=== PATIENT | female | born 1945 | race Caucasian/White ===

== ENCOUNTER 2016-06-03 09:27 | Emergency (ER) | payer MEDICARE, OTHER ==
[~2016-06-03] VITALS: Ht 160 cm; Wt 51.7 kg
[~2016-06-03 09:27] MED LIST: BONIVA; DIAZ5TAB3; FLUC200T31; IBAN2.5T PO; IBUP-15; SENN1TAB27
[2016-06-03] MEDS ORDERED: KETOROLAC 30 MG/ML VIAL IM ONE (10:15)
--- NOTE | 2016-06-03 10:20 | Diagnostic Imaging Report ---
EXAM: RIBS, RIGHT 2-3 VIEWS INDICATION: Fall onto right ribs. Chest pain. COMPARISON: None. FINDINGS: No fractures. The right lung is clear. Calcified aorta. No right pleural effusion or pneumothorax. IMPRESSION: No right rib fractures identified. Dictated by: Dictated on workstation # [id number]
--- NOTE | 2016-06-03 10:54 | ED General ---
General Chief Complaint: Chest Wall/Rib Pain Stated Complaint: RIGHT SIDE RIB PAIN Nursing Triage Note: AMBULATED TO ROOM 03 WITH COMPLAINTS OF RIB PAIN UNDER RIGHT BREAST. STATES X1 WEEK AGO PT BENT OVER AGAINST SOMETHING METAL AND THINKS SHE CRACKED A RIB. Nursing Sepsis Screen: No Definite Risk Source of Information: Patient Exam Limitations: No Limitations History of Present Illness Time Seen by Provider: 09:53 Initial Comments This delightful 70-year-old woman presents to the emergency room with complaints of right lateral chest wall pain that started about one week ago when she leaned over the arm of a metal chair. Pain started within 30 minutes. It does hurt to take in a deep breath, cough, or sneeze. This area also has point tenderness. She took 400 mg of Advil twice which was not particularly helpful. She rates her pain as an 8/10. Allergies and Home Medications Allergies Coded Allergies: Penicillins (Unverified Allergy, Mild, 07/20/08) hydrocodone (Unverified Allergy, Unknown, 10/13/08) Home Medications No Active Prescriptions or Reported Meds Constitutional: no symptoms reported EENTM: no symptoms reported Respiratory: see HPI Cardiovascular: no symptoms reported Gastrointestinal: no symptoms reported Genitourinary: no symptoms reported Musculoskeletal: see HPI Skin: no symptoms reported Psychiatric/Neurological: No Symptoms Reported Past Zugsfiw-Qagnac-Okznjv Hx Patient Social History Recent Foreign Travel: No Contact w/Someone Who Travel: No Recent Infectious Disease Expo: No Recent Hopitalizations: No Immunizations Up To Date Date of Pneumonia Vaccine: Nov 15, 2015 Date of Influenza Vaccine: Nov 20, 2011 Seasonal Allergies Seasonal Allergies: No Surgeries HX Surgeries: Yes Surgeries: Orthopedic (bilateral knees, thumb, cervical spine), Tubal Ligation Respiratory Hx Respiratory Disorders: No Cardiovascular Hx Cardiac Disorders: No Neurological Hx Neurological Disorders: Yes (history of cervical spinal stenosis status post surgery) Reproductive System Hx Reproductive Disorders: No Sexually Transmitted Disease: No Female Reproductive Disorders: Denies Genitourinary Hx Genitourinary Disorders: No Gastrointestinal Hx Gastrointestinal Disorders: No Musculoskeletal Hx Musculoskeletal Disorders: Yes (history of cervical spinal stenosis status post surgical intervention) Endocrine Hx Endocrine Disorders: No HEENT HX ENT Disorders: No Hearing Impairment: Denies Cancer Hx Cancer: No Psychosocial Hx Psychiatric Problems: No Integumentary HX Skin/Integumentary Disorder: No Blood Transfusions Hx Blood Disorders: No Physical Exam Vital Signs Vital Sign - Last 12Hours 06/03/16 09:40 Temp 98.0 Pulse 66 Resp 18 B/P (MAP) 115/44 Pulse Ox 97 O2 Delivery Room Air Capillary Refill : Less Than 3 Seconds General Appearance: No Apparent Distress, WD/WN HEENT: PERRL/EOMI, Normal ENT Inspection Respiratory: Lungs Clear, Normal Breath Sounds, No Accessory Muscle Use, No Respiratory Distress Cardiovascular: Regular Rate, Rhythm, No Edema, No Murmur, Other (right inferior anterior lateral chest wall with point tenderness) Gastrointestinal: Normal Bowel Sounds, Non Tender, Soft Extremity: Normal Inspection, No Pedal Edema Neurologic/Psychiatric: Alert, Oriented x3, No Motor/Sensory Deficits, Normal 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 X-ray was negative. Patient was given reassurance and discharge instructions reviewed. Diagnostic Imaging Diagonstic Imaging: Xray Plain Films/CT/US/NM/MRI: chest Comments Chest x-ray viewed by me and report reviewed. See report below: NAME: WAN K[facility] REC#: [id number] PT STATUS: DEP ER : 1945 PHYSICIAN: EDILMA ZARATE MD ADMIT DATE: 06/03/16/ER Signed Date of Exam: 06/03/16 RIBS, RIGHT 2-3 VIEWS EXAM: RIBS, RIGHT 2-3 VIEWS INDICATION: Fall onto right ribs. Chest pain. COMPARISON: None. FINDINGS: No fractures. The right lung is clear. Calcified aorta. No right pleural effusion or pneumothorax. IMPRESSION: No right rib fractures identified. Dictated by: Dictated on workstation # [id number] <Dictated by GARY DOTSON MD> Departure Impression Impression: Primary Impression: Chest wall pain Disposition: 01 HOME, SELF-CARE Condition: Improved Departure-Patient Inst. Decision time for Depature: 10:40 Referrals: MARIANELA PIZANO DO (PCP/Family) Primary Care Physician Patient Instructions: Chest Pain That Is Not Caused by the Heart (DC) Add. Discharge Instructions: You may take ibuprofen up to 400 mg every 6 hours as needed for pain. It may take several doses before you notice a significant difference. Take ibuprofen with food or milk to avoid irritation of the stomach. You may add Tylenol ( acetaminophen) up to 650 mg every 4 hours as needed for additional pain relief. Follow-up with your doctor if not improving after one week. Return to the ER if symptoms worsen. All discharge instructions reviewed with patient and/or family. Voiced understanding. Scripts No Active Prescriptions or Reported Meds EDILMA ZARATE MD Jun 03, 2016 10:54
[2016-06-03 11:14] VITALS: BP 103/55
== END 2016-06-03 11:14 | disposition home or self-care (01) ==
LOC: EDUNIT# 09:27 → ER 09:28
DX: R07.89 Other chest pain (principal)
CPT/HCPCS: 71100; 96372; 99283

== ENCOUNTER → 2016-10-05 | Outpatient (CLI) | payer MEDICARE, OTHER ==
--- NOTE | 2016-10-05 20:34 | Diagnostic Imaging Report ---
Digital mammogram bilateral screening with tomosynthesis. This study was compared to the prior exams of 09/28/2015 and 07/30/2013. At this time, there are no current complaints. The current study was also evaluated with a Computer Aided Detection (CAD) system. FINDINGS: The fibroglandular tissue in both breasts is heterogeneously dense. This does limit the sensitivity of this exam. As noted on the prior exam, there are small roughly 1 cm nodular densities in the lateral aspects of each breast. These findings seem stable when compared to the prior study and have the appearance of lymph nodes. There is no primary or secondary sign of malignancy noted. The tomographic views also fail to show any sign of malignancy. IMPRESSION: There is no evidence for malignancy. ACR BI-RADS Category 1: Negative. Result letter will be mailed to the patient. Note: At least 10% of breast cancer is not imaged by mammography. Dictated by: Dictated on workstation # [id number]
== END ==
LOC: RAD 08:44
PROVIDERS: ATTEND Obstetrics & Gynecology
DX: Z12.31 Encounter for screening mammogram for malignant neoplasm of breast (principal)
CPT/HCPCS: 77067

== ENCOUNTER → 2017-04-10 | Outpatient (CLI) | payer MEDICARE, OTHER ==
--- NOTE | 2017-04-10 14:39 | Diagnostic Imaging Report ---
INDICATION: Left foot injury with pain around the second metatarsal. TIME OF EXAM: 02:42 p.m. FINDINGS: Three views of the left foot were obtained. Metatarsals appear intact. The phalanges are intact. The mid foot and hind foot are unremarkable. No fractures are seen. IMPRESSION: No acute bony abnormality is detected. Dictated by: Dictated on workstation # [id number]
== END ==
LOC: RAD 14:09
PROVIDERS: ATTEND Nurse Practitioner Family
DX: S99.922A Unspecified injury of left foot, initial encounter (principal)
CPT/HCPCS: 73630

== ENCOUNTER → 2017-06-22 | Outpatient (CLI) | payer MEDICARE, OTHER | LOC: RAD 10:01 | PROVIDERS: ATTEND Family Medicine | DX: Z12.31 Encounter for screening mammogram for malignant neoplasm of breast (principal) ==

== ENCOUNTER → 2018-04-22 | Outpatient (CLI) | payer MEDICARE, OTHER ==
--- NOTE | 2018-04-22 16:58 | Diagnostic Imaging Report ---
INDICATION: Tingling sensation on left-sided back starting at the left shoulder blade and running down.. TECHNIQUE: AP, lateral, and swimmers imaging of the thoracic spine was performed. CORRELATION STUDY: None. FINDINGS: The thoracic spinal alignment appears unremarkable. The vertebral body heights and disc spaces are fairly well maintained. No fracture or malalignment is seen. The cervicothoracic junction is somewhat limited in visualization. No suggestion for acute bony abnormality. IMPRESSION: No radiographic evidence for acute abnormality of the thoracic spine. Dictated by: Dictated on workstation # [id number]
--- NOTE | 2018-04-22 21:06 | Diagnostic Imaging Report ---
INDICATION: Tingling sensation in left side of back starting at left shoulder blade and running down. Sometimes right-sided. TECHNIQUE: AP, lateral and odontoid views cervical spine. CORRELATION STUDY: None FINDINGS: Trace retrolisthesis C3 on C4. Trace anterolisthesis C6 on C7, C7 on T1. Cervical vertebral body heights demonstrate slight anterior wedging C4, C5 and superior C6 level. Marked disc space narrowing C4-C5, C5-C6 and C6-C7 levels. Reactive endplate sclerosis and osteophyte formation present. Posterior elements demonstrate asymmetric hypertrophy and facet arthropathy. Interfacet hardware at the C3-C4, C4-C5, C5-C6 level on the left is present. Mildly prominent C7 cervical ribs. Odontoid unremarkable. Prevertebral soft tissues are unremarkable. Mildly prominent C7 cervical ribs. IMPRESSION: 1. Advanced multilevel cervical spondylosis is present. Posterior hardware at the C3-C4, C4-C5, C5-C6 level on the left. Dictated by: Dictated on workstation # [id number]
== END ==
LOC: RAD 14:33
PROVIDERS: ATTEND Family Medicine
DX: M47.812 Spondylosis without myelopathy or radiculopathy, cervical region (principal); M54.6 Pain in thoracic spine; Z98.890 Other specified postprocedural states
CPT/HCPCS: 72040; 72072

== ENCOUNTER → 2018-09-09 | Outpatient (CLI) | payer MEDICARE, OTHER ==
--- NOTE | 2018-09-09 13:27 | Diagnostic Imaging Report ---
PROCEDURE: MR imaging of the cervical spine without contrast. TECHNIQUE: Multiplanar, multisequence MR imaging of the cervical spine was performed without contrast. INDICATION: Pain between the shoulder blades. COMPARISON: Cervical spine radiographs on 04/22/2018. FINDINGS: No acute fracture or dislocation is seen in the cervical spine. There is straightening of the cervical spine. Minimal anterolisthesis of C6 on C7 and C7 on T1 is noted. Surgical hardware is seen at the left facets at C3-C4, C4-C5, and C5-C6. The vertebral body heights are well maintained. The bone marrow signal is unremarkable. No focal osseous lesions. The craniocervical junction is maintained. The cervical spinal cord demonstrates normal intrinsic signal. No epidural collections are seen. Included brainstem and posterior fossa have normal appearance. Multilevel degenerative changes are seen in the cervical spine with posterior disc bulges and uncovertebral arthropathy. C2-C3: No significant spinal canal or foraminal stenosis. C3-C4: Uncovertebral arthropathy results in no significant spinal canal or foraminal stenosis. C4-C5: Uncovertebral arthropathy results in no significant spinal canal narrowing and mild left foraminal narrowing. Small perineural cyst is noted in the left foramen. C5-C6: Posterior disc bulge and uncovertebral arthropathy result in mild spinal canal stenosis and mild right and [id number] left foraminal stenosis. C6-C7: Posterior disc bulge and uncovertebral arthropathy result in mild spinal canal stenosis and no foraminal stenosis. C7-T1: No significant spinal canal or foraminal stenosis. Soft tissues of neck are unremarkable. IMPRESSION: 1. No acute fracture or dislocation of the cervical spine. 2. Mild multilevel degenerative changes in the cervical spine, greatest at C5-C6. Dictated by: Dictated on workstation # [id number]
== END ==
LOC: RAD 12:24
PROVIDERS: ATTEND Physical Medicine & Rehabilitation
DX: M47.22 Other spondylosis with radiculopathy, cervical region (principal); Z98.890 Other specified postprocedural states
CPT/HCPCS: 72141

== ENCOUNTER → 2018-09-10 | Outpatient (CLI) | payer MEDICARE, OTHER ==
--- NOTE | 2018-09-10 14:38 | Diagnostic Imaging Report ---
INDICATION: Infrascapular shoulder pain. COMPARISON: Study correlated with plain films of 04/22/2018. TECHNIQUE: Multiplanar and multisequence non contrast-enhanced MRI thoracic spine performed. FINDINGS: Thoracic spinal cord has a normal volume, a normal morphology, and normal signal intensity. CSF circumscribes the cord at all vertebral body and disc space levels and the spinal canal is widely patent throughout the thoracic spine. Note is made of multiple left greater than right T2 hyper and T1 hypointense foraminal nodules, the largest of which is on the left at the T10-T11 level and results in expansion of the left neuroforamen. Bony erosions of the posterior body of T10 as well as some erosions of the posterior cortical elements. This lesion measured 2 cm AP x 1.6 cm transverse with cephalocaudal height of 1.9 cm. Several additional smaller similar signal lesions without foraminal expansion are present including left T12-L1, right greater than left T3-T4, left T4-T5, left T5-T6, left greater than right T7-T8, bilateral T8-T9 and T9-T10. While these likely reflect a perineural cyst, T2-bright nerve sheath tumors could not be excluded and limited imaging of the thoracic spine with axial and sagittal post contrast-enhanced T1 imaging recommended to exclude unexpected enhancement and to definitively exclude soft tissue lesions. IMPRESSION: 1. Multiple bilateral foraminal T2 hyperintense lesions, likely perineural cysts however post contrast-enhanced imaging recommended to exclude solid or enhancing lesions. 2. Normal vertebral body heights, aligned anatomically. Intact discs. No canal stenosis. Normal cord. Dictated by: Dictated on workstation # [id number]
== END ==
LOC: RAD 13:07
PROVIDERS: ATTEND Physical Medicine & Rehabilitation
DX: M48.8X4 Other specified spondylopathies, thoracic region (principal); M54.14 Radiculopathy, thoracic region
CPT/HCPCS: 72146

== ENCOUNTER 2018-09-13 12:57 | Outpatient (RCR) | payer MEDICARE, OTHER | END 2018-09-13 13:27 | disposition home or self-care (01) | PROVIDERS: ATTEND Physical Medicine & Rehabilitation | DX: M54.12 Radiculopathy, cervical region (principal); M53.84 Other specified dorsopathies, thoracic region; R29.3 Abnormal posture; Z98.890 Other specified postprocedural states ==

== ENCOUNTER → 2019-02-20 | Outpatient (CLI) | payer MEDICARE, OTHER ==
--- NOTE | 2019-02-20 17:18 | Diagnostic Imaging Report ---
INDICATION: Right hand pain. COMPARISON: None. EXAMINATION: Three views of the right hand were obtained. FINDINGS: No fracture or dislocation. Articular surfaces are age appropriate. No bony erosion identified. There is no radiopaque foreign body. There is no osteomyelitis or soft tissue gas. IMPRESSION: No underlying fracture or osteomyelitis identified. Dictated by: Dictated on workstation # [id number]
--- NOTE | 2019-02-20 17:21 | Diagnostic Imaging Report ---
INDICATION: Groin pain. COMPARISON: None. EXAMINATION: Single view of the pelvis and two views of the right hip were obtained. FINDINGS: Minimal to mild degenerative joint disease of both hips. There is no fracture, dislocation or osseous lesion. SI joints are symmetric. IMPRESSION: Degenerative joint disease without fracture. Dictated by: Dictated on workstation # [id number]
== END ==
LOC: RAD 16:15
PROVIDERS: ATTEND Family Medicine
DX: M16.11 Unilateral primary osteoarthritis, right hip (principal); M79.641 Pain in right hand
CPT/HCPCS: 73130

== ENCOUNTER 2019-03-25 15:58 | Outpatient (RCR) | payer MEDICARE, OTHER ==
[2019-04-09] MEDS ORDERED: DICL100G18 TP (13:00)
== END 2019-04-28 14:17 | disposition home or self-care (01) ==
PROVIDERS: ATTEND Family Medicine
DX: M16.11 Unilateral primary osteoarthritis, right hip (principal)

== ENCOUNTER → 2019-03-27 | Outpatient (CLI) | payer MEDICARE, OTHER ==
--- NOTE | 2019-03-27 14:18 | Diagnostic Imaging Report ---
INDICATION: Status post fall while painting in shower. Pain. TECHNIQUE: Three views of the right shoulder CORRELATION STUDY: None FINDINGS: The glenohumeral and acromioclavicular alignment are maintained and unremarkable. There is no evidence for acute fracture or dislocation. The visualized soft tissues are unremarkable. Apparent multilevel cervical changes of the cervical spine. IMPRESSION: 1. Negative for acute bony abnormality about the shoulder. Dictated by: Dictated on workstation # [id number]
--- NOTE | 2019-03-27 14:18 | Diagnostic Imaging Report ---
INDICATION: Post fall in shower while painting, pain. TECHNIQUE: 3 views of the right foot CORRELATION STUDY: None FINDINGS: There is some degree of bony demineralization. Mild degenerative changes joint space narrowing at 1st MTP joint. There is no acute fracture. Alignment anatomic. Soft tissues appearing unremarkable. IMPRESSION: 1. Negative for acute findings of the foot. Dictated by: Dictated on workstation # [id number]
--- NOTE | 2019-03-27 14:18 | Diagnostic Imaging Report ---
INDICATION: Post fall in shower while painting, pain. TECHNIQUE: 2 views right clavicle, 12:22 PM. CORRELATION STUDY: None FINDINGS: Clavicle is intact. There is mildly prominent spur along the distal inferior aspect of the clavicle. Clavicular joint maintained. Glenohumeral joint appears preserved. Apparent prior surgical changes of the cervical spine. IMPRESSION: 1. Negative for acute displaced right clavicle fracture. Degenerative spurring at the inferior distal clavicle. Dictated by: Dictated on workstation # [id number]
--- NOTE | 2019-03-27 14:18 | Diagnostic Imaging Report ---
INDICATION: Post fall while painting in shower. Pain TECHNIQUE: AP pelvis 12:25 PM CORRELATION STUDY: None FINDINGS: The pelvis demonstrates no evidence for acute fracture. The pectineal lines and obturator rings are maintained. Pubic symphysis and SI joints are unremarkable. Hips unremarkable. IMPRESSION: Negative examination of the pelvis. Dictated by: Dictated on workstation # [id number]
--- NOTE | 2019-03-27 16:03 | Diagnostic Imaging Report ---
PROCEDURE: US Renal Bilateral. TECHNIQUE: Multiple real-time grayscale images were obtained over the kidneys in various projections bilaterally. INDICATION: Fall and back pain. FINDINGS: Right kidney measures 9.8 x 4.8 x 4.1 cm and the left kidney measures 9.4 x 4.8 x 4.2 cm. Cortical thickness and echogenicity is normal. No calculus or hydronephrosis is identified. Partially filled urinary bladder is unremarkable although the ureteral jets were not visualized. IMPRESSION: Unremarkable renal ultrasound. Dictated by: Dictated on workstation # [id number]
== END ==
LOC: RAD 11:57
PROVIDERS: ATTEND Nurse Practitioner Family
DX: M19.011 Primary osteoarthritis, right shoulder (principal); M79.671 Pain in right foot; M54.9 Dorsalgia, unspecified; R10.2 Pelvic and perineal pain; W18.2XXA Fall in (into) shower or empty bathtub, initial encounter; Y93.89 Activity, other specified; Z98.890 Other specified postprocedural states
CPT/HCPCS: 72170; 73000; 73030; 73630; 76770

== ENCOUNTER → 2019-03-31 | Outpatient (CLI) | payer MEDICARE, OTHER ==
--- NOTE | 2019-03-31 10:14 | Diagnostic Imaging Report ---
INDICATION: Pain after fall. PA and lateral views of the chest were obtained. FINDINGS: The heart size, mediastinal configuration, and pulmonary vascularity are within normal limits. There is no pleural effusion, pneumothorax, or pneumonia. The osseous structures are unremarkable. IMPRESSION: No acute cardiopulmonary abnormality. Dictated by: Dictated on workstation # [id number]
--- NOTE | 2019-03-31 11:04 | Diagnostic Imaging Report ---
INDICATION: Neck pain. TECHNIQUE: Three views of the cervical spine were obtained. FINDINGS: There are post surgical changes of a posterior instrumentation at C4-C5, C5-C6, and C6-C7. There is multilevel degenerative disc disease. There is no fracture or traumatic subluxation. The prevertebral soft tissues are within normal limits. The odontoid is intact and the lateral masses are well aligned. IMPRESSION: Diffuse cervical spondylosis and multilevel degenerative disc disease as described with previous post surgical changes. Dictated by: Dictated on workstation # [id number]
== END ==
LOC: RAD 09:40
PROVIDERS: ATTEND Family Medicine
DX: M50.30 Other cervical disc degeneration, unspecified cervical region (principal); M47.812 Spondylosis without myelopathy or radiculopathy, cervical region; Z91.81 History of falling
CPT/HCPCS: 71046; 72040

== ENCOUNTER 2019-04-09 11:46 | Emergency (ER) | payer MEDICARE, OTHER ==
[~2019-04-09] VITALS: Ht 160 cm; Wt 53.6 kg
[2019-04-09] MEDS ORDERED: LIDOCAINE 1% INJ 20 ML 20 ML VIAL INJ ONE (12:30)
[2019-04-09] MEDS ORDERED: TRIAMCINOLONE ACET (KENALOG-40) 40 MG/ML 1 ML VIAL IA ONE (12:30)
--- NOTE | 2019-04-09 12:36 | ED Upper Extremity ---
General Chief Complaint: Upper Extremity Stated Complaint: R SHOULDER INJ Nursing Triage Note: Pt reports falling off a ladder two weeks ago and injuring R shoulder. Pt reports having xrays and US, both negative. Pt reports being sent here by Dr. Davalos today. Bruising in various stages of healing noted to pt's chest. Nursing Sepsis Screen: No Definite Risk Source: patient Exam Limitations: no limitations History of Present Illness Date Seen by Provider: Apr 09, 2019 Time Seen by Provider: 12:34 Initial Comments To ER with right shoulder pain has been ongoing since a fall about 2-3 weeks ago. She was in her shower on a ladder doing some maintenance at home when it fell causing her to land on her right shoulder. She's had several outpatient x- rays done, she is now unable to abduct or forward flex the arm at the shoulder because of pain in the anterior shoulder joint. Onset: just prior to arrival Severity: moderate Pain/Injury Location: right shoulder Method of Injury: fell Modifying Factors: Worse With Movement Allergies and Home Medications Allergies Coded Allergies: Penicillins (Unverified Allergy, Mild, 07/20/08) hydrocodone (Unverified Allergy, Unknown, 10/13/08) prednisone (Verified Allergy, Unknown, 04/09/19) flushed face tramadol (Verified Allergy, Unknown, 04/09/19) "forget things" triazolam (Verified Allergy, Unknown, Vomiting, 04/09/19) "makes me forget things" sulfamethoxazole (Verified Adverse Reaction, Unknown, 04/09/19) "stomach hurts" trimethoprim (Verified Adverse Reaction, Unknown, 04/09/19) "stomach hurts" Home Medications Diclofenac Sodium 100 Gm Gel..gram., 100 GM TP TID Prescribed by: GILA DEL ANGEL on 04/09/19 1300 Patient Home Medication List Home Medication List Reviewed: Yes Review of Systems Constitutional: see HPI EENTM: see HPI Respiratory: no symptoms reported Cardiovascular: no symptoms reported Genitourinary: no symptoms reported Musculoskeletal: see HPI Skin: no symptoms reported Psychiatric/Neurological: No Symptoms Reported Past Hfpyauh-Mdfqhk-Shnzvo Hx Patient Social History Alcohol Use: Denies Use Recreational Drug Use: No Smoking Status: Never a Smoker 2nd Hand Smoke Exposure: No Recent Foreign Travel: No Contact w/Someone Who Travel: No Recent Infectious Disease Expo: No Recent Hopitalizations: No Immunizations Up To Date Date of Pneumonia Vaccine: Nov 15, 2015 Date of Influenza Vaccine: Nov 20, 2011 Seasonal Allergies Seasonal Allergies: No Past Medical History Surgeries: Yes (TRIGGER THUMB SX, BRYAN KNEES MINESCIC,FAKE TOOTH) Orthopedic, Tubal Ligation Respiratory: No Cardiac: No Neurological: Yes (history of cervical spinal stenosis status post surgery) Reproductive Disorders: No Female Reproductive Disorders: Denies Sexually Transmitted Disease: No Gastrointestinal: No Musculoskeletal: Yes (history of cervical spinal stenosis status post surgical intervention) Endocrine: No Hearing Impairment: Denies Cancer: No Psychosocial: No Integumentary: No Blood Disorders: No Physical Exam Vital Signs Vital Signs - First Documented 04/09/19 11:59 Temp 36.6 Pulse 90 Resp 15 B/P (MAP) 115/51 (72) Pulse Ox 93 O2 Delivery Room Air Capillary Refill : Less Than 3 Seconds Height, Weight, BMI Height: 5'3.00" Weight: 114lbs. 0.0oz. 51.663987kj; 20.00 BMI Method:Stated General Appearance: WD/WN, no apparent distress, thin HEENT: PERRL/EOMI, normal ENT inspection Neck: non-tender, full range of motion Respiratory: normal breath sounds, no respiratory distress, no accessory muscle use Shoulder: normal inspection, pain, soft tissue tenderness (no swelling, no ecchymosis noted deformity. There is some ecchymosis over the upper chest, upper sternum that is yellowish in color) Elbow/Forearm: normal inspection, non-tender Wrist: Yes normal inspection, Yes non-tender Hand: normal inspection, non-tender Neurologic/Psychiatric: alert, normal mood/affect, oriented x 3 Skin: normal color, warm/dry Progress/Results/Core Measures Results/Orders My Orders Orders - GILA DEL ANGEL APRN Triamcinolone Acetonide Im (Kenalog-40) (04/09/19 12:30) Lidocaine 1% Inj 20 Ml (Xylocaine 1% Inj (04/09/19 12:30) Shoulder, Right, 3 Views (04/09/19 12:28) Vital Signs/I&O 04/09/19 11:59 Temp 36.6 Pulse 90 Resp 15 B/P (MAP) 115/51 (72) Pulse Ox 93 O2 Delivery Room Air Blood Pressure Mean: 72 Diagnostic Imaging Diagonstic Imaging: Xray Comments NAME: [facility] REC#: [id number] PT STATUS: REG ER : 1945 PHYSICIAN: GILA DEL ANGEL APRN ADMIT DATE: 04/09/19/ER Draft Date of Exam:04/09/19 SHOULDER, RIGHT, 3 VIEWS INDICATION: Fall, pain. FINDINGS: There is a subtle lucency involving the superolateral margin of the humeral head to the top of the greater tuberosity. In the setting of trauma and persistent pain, this is suspicious for small nondisplaced fracture. This could be confirmed or refuted with CT or MRI as warranted. No other potential injury. The proximal shaft and neck appeared intact. Glenoid is unremarkable. There is acromioclavicular osteoarthritis. The clavicle appeared intact. IMPRESSION: 1. Subtle lucency at the superior margin of the greater tuberosity of the humeral head is suspicious for a nondisplaced fracture. This correlates with the level of the expected cuff insertion. This could be confirmed or refuted with MR or CT as warranted. 2. No other potential acute or subacute bony finding. Dictated on workstation # [id number] Dict: 04/09/19 1250 Trans: 04/09/19 1255 [facility] [id number] Interpreted by: GIACOMO DENNIS Electronically signed by: Departure Communication (Admissions) She is tender to palpation over the posterior and anterior shoulder joint line, there is no tenderness to palpation over the most lateral aspect of the shoulder. will do a sling for comfort, I did do a injection of 3 mL of 1% lidocaine without epinephrine and 20 mg of Kenalog intra-articular right shoulder. We will give outpatient order for MRI of shoulder. Impression Primary Impression: Internal derangement of right shoulder Disposition: 01 HOME, SELF-CARE Condition: Stable Departure-Patient Inst. Decision time for Depature: 12:58 Referrals: MARIANELA DAVALOS DO (PCP/Family) Primary Care Physician Patient Instructions: Shoulder Labral Tear Add. Discharge Instructions: 1. Topical medication as directed 2. Schedule the MRI that I have given you a prescription for. Follow-up with Dr. Davalos. All discharge instructions reviewed with patient and/or family. Voiced understanding. Scripts Diclofenac Sodium (Voltaren) 100 Gm Gel..gram. 100 GM TP TID for 7 Days, #2 TUBE Prov: GILA DEL ANGEL APRN 04/09/19 GILA DEL ANGEL APRN Apr 09, 2019 12:36
--- NOTE | 2019-04-09 12:56 | Diagnostic Imaging Report ---
INDICATION: Fall, pain. FINDINGS: There is a subtle lucency involving the superolateral margin of the humeral head to the top of the greater tuberosity. In the setting of trauma and persistent pain, this is suspicious for small nondisplaced fracture. This could be confirmed or refuted with CT or MRI as warranted. No other potential injury. The proximal shaft and neck appeared intact. Glenoid is unremarkable. There is acromioclavicular osteoarthritis. The clavicle appeared intact. IMPRESSION: 1. Subtle lucency at the superior margin of the greater tuberosity of the humeral head is suspicious for a nondisplaced fracture. This correlates with the level of the expected cuff insertion. This could be confirmed or refuted with MR or CT as warranted. 2. No other potential acute or subacute bony finding. Dictated by: Dictated on workstation # [id number]
[2019-04-09] MEDS ORDERED: DICL100G18 TP (13:00)
[2019-04-09 13:11] VITALS: BP 115/51
== END 2019-04-09 13:11 | disposition home or self-care (01) ==
LOC: EDUNIT# 11:46 → ER 11:47
DX: M24.811 Other specific joint derangements of right shoulder, not elsewhere classified (principal); Z88.0 Allergy status to penicillin; Z88.5 Allergy status to narcotic agent; Z88.2 Allergy status to sulfonamides; Z88.1 Allergy status to other antibiotic agents; W11.XXXA Fall on and from ladder, initial encounter; Y92.009 Unspecified place in unspecified non-institutional (private) residence as the place of occurrence of the external cause
CPT/HCPCS: 73030

== ENCOUNTER → 2019-05-01 | Outpatient (CLI) | payer MEDICARE, OTHER ==
[~2019-05-01] MED LIST changes: +DICL100G18 TP
--- NOTE | 2019-05-01 14:27 | Diagnostic Imaging Report ---
CLINICAL HISTORY: Fall. Left knee pain. COMPARISON: None TECHNIQUE: 3 views of the left knee. FINDINGS: There is no acute fracture or dislocation of the left knee. Alignment is anatomic. The imaged joint spaces are preserved. No joint effusion is seen in the left knee. The surrounding soft tissues are unremarkable. IMPRESSION: 1. No acute fracture or dislocation of the left knee. No large joint effusion. No significant osseous degenerative changes. Report given to CURRY Carson) at 2:20 p.m. 05/01/2019/cb Dictated by: Dictated on workstation # [id number]
== END ==
LOC: RAD 13:48
PROVIDERS: ATTEND Family Medicine
DX: M25.562 Pain in left knee (principal); W19.XXXA Unspecified fall, initial encounter
CPT/HCPCS: 73562

== ENCOUNTER → 2019-05-14 | Outpatient (CLI) | payer MEDICARE, OTHER ==
--- NOTE | 2019-05-14 11:39 | Diagnostic Imaging Report ---
PROCEDURE: MRI left joint lower extremity without contrast. TECHNIQUE: Multiplanar, multisequence non contrast-enhanced MRI of the left lower extremity was accomplished. INDICATION: Left knee pain mostly medial. Locks up. Fell off ladder approximately 6 weeks ago. EXAMINATION: MRI of the left knee 05/14/2019 FINDINGS: The extensor mechanism is intact. The ACL and PCL are intact as well. Lateral collateral ligamentous complex intact. The MCL is intact however there is mild hyperintensity on the T2-weighted imaging along the proximal ACL likely a strain. Surrounding edema seen both medial and lateral to the MCL. There is diffuse abnormal signal intensity throughout the entire medial meniscus predominantly in the posterior horn consistent with a diffuse multidirectional degenerative type tear. There are cystic change posterior to the posterior horn. A small developing para meniscal cyst not excluded. Abnormal signal intensity is also seen throughout the anterior horn of the lateral meniscus consistent with a diffuse tear. There is diffuse irregular signal intensity throughout the patellar cartilage. Abnormal signal intensity and thinning of the cartilage in the medial compartment and to a lesser degree the lateral compartment. There is a small amount of joint fluid. Tiny slitlike Castellanos cyst is also noted. There is diffuse abnormal signal intensity throughout the medial femoral condyle. This could be reactive in nature given the abnormalities within the medial joint compartment. A small developing osteochondral defect or insufficiency fracture not excluded given a focal abnormality along the weightbearing surface of the medial femoral condyle well seen on the sagittal sequences specifically image #17. IMPRESSION: 1. Findings of a likely MCL sprain without discontinuity. Remaining ligaments and tendons intact 2. Medial and lateral meniscal tears. 3. Tricompartmental degenerative disease worst in the medial compartment with a possible small osteochondral defect or developing insufficiency fracture medial femoral condyle. Other findings as above. Dictated on workstation # [id number]
== END ==
LOC: RAD 09:57
PROVIDERS: ATTEND Orthopaedic Surgery
DX: S83.282A Other tear of lateral meniscus, current injury, left knee, initial encounter (principal); S83.242A Other tear of medial meniscus, current injury, left knee, initial encounter; M17.12 Unilateral primary osteoarthritis, left knee; W11.XXXA Fall on and from ladder, initial encounter
CPT/HCPCS: 73721

== ENCOUNTER 2020-03-01 09:43 | Outpatient (RCR) | payer MEDICARE, OTHER | END 2020-04-06 09:40 | disposition home or self-care (01) | PROVIDERS: ATTEND Orthopaedic Surgery | DX: M47.816 Spondylosis without myelopathy or radiculopathy, lumbar region (principal) ==

== ENCOUNTER → 2020-03-05 | Outpatient (CLI) | payer MEDICARE, OTHER ==
--- NOTE | 2020-03-05 10:33 | Diagnostic Imaging Report ---
PROCEDURE: MRI pelvis without contrast. TECHNIQUE: Multiplanar, multisequence MRI of the pelvis was performed without contrast. INDICATION: Pelvic pain, bilateral hip pain. There are no prior MRI examinations available for comparison. The plain film examination of the pelvis performed on 03/27/2019 failed to show any sign of an acute bony abnormality. On the T1 coronal series there is a small 1.0 x 1.0 x 2.1 cm area of diminished signal in the subarticular region of the midportion of the acetabulum on the right. There is a corresponding area of increased signal in this region on the coronal STIR series. This finding does suggest mild bone edema and may be related to a recent osteochondral injury. A stress fracture could also present in this manner. There is no other abnormal signal arising from the osseous structures to suggest bone edema or fracture. There is no abnormal signal arising from the femoral heads to suggest avascular necrosis either. There is mild degenerative disease of the hip and sacroiliac joints. On the coronal STIR series there are small areas of increased signal in the soft tissues adjacent to the greater trochanter of each femur. This appearance does suggest mild edema/inflammation and may be related to trochanteric bursitis. There is also a small joint effusion on the left and a trace amount of fluid in the right hip joint. There is no pelvic mass or free fluid collection evident. IMPRESSION: 1. The area of altered signal involving the midportion of the right acetabulum does suggest bone edema. This could be related to a recent osteochondral injury or a stress fracture. Clinical followup is recommended. 2. There is no acute bony abnormality identified otherwise. 3. The slightly altered signal in the soft tissues adjacent to each greater trochanter does indicate mild edema/inflammation may be related to mild trochanteric bursitis. 4. There is a small left joint effusion. This is nonspecific. Dictated by: Dictated on workstation # [id number]
== END ==
LOC: RAD 08:56
PROVIDERS: ATTEND Orthopaedic Surgery
DX: M25.552 Pain in left hip (principal); M25.551 Pain in right hip; R10.2 Pelvic and perineal pain
CPT/HCPCS: 72195

== ENCOUNTER 2020-06-01 23:35 | Emergency (ER) | payer MEDICARE, OTHER ==
[~2020-06-01] VITALS: Ht 160 cm; Wt 51.7 kg
--- NOTE | 2020-06-02 00:16 | ED Lower Extremity ---
General Chief Complaint: Lower Extremity Stated Complaint: POSS SPIDER BITES ON RIGHT LOWER LEG Nursing Triage Note: PATIENT STATES THAT A WEEK AGO, SHE WOKE UP IN THE MIDDLE OF THE NIGHT WITH "HANK HORSE TYPE PAIN" IN HER RIGHT CALF. SHE HAS SEEN DR. PIZANO AND TODAY GOT AN ULTRASOUND ON THE TWO SMALL DRY PATCHES ON THE RIGHT CALF WHERE THE PAIN IS MOST SEVERE. SHE ALSO EXPERIENCED EXTREME DRY MOUTH TODAY AND AFTER "GOOGLING IT" SHE BECAME CONCERNED THAT IT WAS A POSSIBLE SPIDER BITE. Nursing Sepsis Screen: No Definite Risk Source: patient Exam Limitations: no limitations History of Present Illness Date Seen by Provider: Jun 01, 2020 Time Seen by Provider: 23:55 Initial Comments Here with concerns about spider bites to right lower leg. Also complains of charley horse to her calf. This was going on for the last week. Seen Dr. Pizano's office and had ultrasound right lower extremity which was negative for DVT. Has had shots in her low back for sciatica type symptoms. She found some spots on the outer lower aspect of her right leg and was concerned about spider bites and then looked at the symptoms. Part of that was dry mouth which she is also experiencing. She does admit that she has some nasal congestion and does suffer from allergies and does not take any medicine for that. She is otherwise healthy without heart disease or hypertension. She became more concerned tonight so she presented to the ER. She did take 1 Tylenol which did help with the pain. Onset: last week Severity: mild, moderate Pain/Injury Location: right leg Method of Injury: unknown Modifying Factors: Improves With Pain Medication, Improves With Rest Allergies and Home Medications Allergies Coded Allergies: Penicillins (Unverified Allergy, Mild, 07/20/08) hydrocodone (Unverified Allergy, Unknown, 10/13/08) prednisone (Verified Allergy, Unknown, 04/09/19) flushed face tramadol (Verified Allergy, Unknown, 04/09/19) "forget things" triazolam (Verified Allergy, Unknown, Vomiting, 04/09/19) "makes me forget things" sulfamethoxazole (Verified Adverse Reaction, Unknown, 04/09/19) "stomach hurts" trimethoprim (Verified Adverse Reaction, Unknown, 04/09/19) "stomach hurts" Home Medications Diclofenac Sodium 100 Gm Gel..gram., 100 GM TP TID Prescribed by: GILA DEL ANGEL on 04/09/19 1300 Patient Home Medication List Home Medication List Reviewed: Yes Review of Systems Constitutional: see HPI; No chills, No fever EENTM: see HPI Respiratory: no symptoms reported Cardiovascular: no symptoms reported Musculoskeletal: back pain, muscle pain Skin: see HPI, lesions, rash Past Cjhifvt-Iehzeq-Kecvgc Hx Past Med/Social Hx: Reviewed Nursing Past Med/Soc Hx Patient Social History Alcohol Use: Denies Use 2nd Hand Smoke Exposure: No Recent Infectious Disease Expo: No Recent Hopitalizations: No Immunizations Up To Date Date of Pneumonia Vaccine: Nov 15, 2015 Date of Influenza Vaccine: Nov 20, 2011 Seasonal Allergies Seasonal Allergies: No Past Medical History Surgeries: Yes (TRIGGER THUMB SX, BRYAN KNEES MINESCIC,FAKE TOOTH) Orthopedic, Tubal Ligation Respiratory: No Cardiac: No Neurological: Yes (history of cervical spinal stenosis status post surgery) Reproductive Disorders: No Female Reproductive Disorders: Denies Sexually Transmitted Disease: No Gastrointestinal: No Musculoskeletal: Yes (history of cervical spinal stenosis status post surgical intervention) Endocrine: No Hearing Impairment: Denies Cancer: No Psychosocial: No Integumentary: No Blood Disorders: No Family Medical History Reviewed Nursing Family Hx Physical Exam Vital Signs Vital Signs - First Documented 06/01/20 23:49 Temp 36.5 Pulse 80 Resp 22 B/P (MAP) 111/85 (94) Pulse Ox 98 O2 Delivery Room Air Capillary Refill : Less Than 3 Seconds Height, Weight, BMI Height: 5'3.00" Weight: 114lbs. 0.0oz. 51.977206wi; 20.00 BMI Method:Stated General Appearance: WD/WN, no apparent distress HEENT: PERRL/EOMI, pharyngeal erythema (Cobblestoning with mild erythema), other (Bilateral nasal congestion with moderate erythema and clear rhinorrhea) Neck: full range of motion, supple Cardiovascular: regular rate, rhythm, no murmur Respiratory: lungs clear, normal breath sounds Back: no vertebral tenderness; No muscle spasm, No vertebral tenderness; other (Right SI joint pain on palpation) Legs: left leg non-tender, left leg normal inspection; right leg pain, right leg soft tissue tenderness, right leg other (Few areas of skin thickening without ulcerations or pustules. No significant surrounding erythema.) Skin: warm/dry, other (Dry, scaly, skin eruptions to the right lower extremity lateral aspect.) Progress/Results/Core Measures Results/Orders Vital Signs/I&O 06/01/20 23:49 Temp 36.5 Pulse 80 Resp 22 B/P (MAP) 111/85 (94) Pulse Ox 98 O2 Delivery Room Air Blood Pressure Mean: 94 Progress Progress Note : Progress Note Seen and evaluated. Reassured patient that these do not appear to be spider bit es. I did discuss her ultrasound results which shows no DVT. She will use topical steroid to the skin eruptions and follow-up with her Ortho doctor regarding possible pain shots to the low back where she has SI joint pain. The back pain and possible sciatica could be part of the problem with the charley horses at night. She does have good distal pulses. Overall patient reassured. Discharged home with return precautions. Patient verbalized understanding instructions and agreement with plan. Departure Impression Primary Impression: Rash/skin eruption Additional Impressions: Sciatica Qualified Codes: M54.31 - Sciatica, right side Allergic rhinitis Qualified Codes: J30.2 - Other seasonal allergic rhinitis Disposition: 01 HOME, SELF-CARE Condition: Improved Departure-Patient Inst. Decision time for Depature: 00:22 Referrals: MARIANELA PIZANO DO (PCP/Family) Primary Care Physician Patient Instructions: Sciatica (DC), Seasonal Allergies (DC), Skin Rash ED Add. Discharge Instructions: All discharge instructions reviewed with patient and/or family. Voiced understanding. You may take Tylenol/acetaminophen 1 or 2 tablets (up to 1000 mg) every 8 hours as needed for pain. You may take ibuprofen 400 mg every 8 hours as needed for pain. You may use hydrocortisone cream over area of concern to the right lower extremity once or twice daily for the next several days to see if this decreases inflammation. Follow-up with your doctor for recheck and further evaluation. Follow-up with landscape painter regarding sciatica and possibility of injections as well. Return for worse pain, swelling, inflammation in the area of concern of the leg, fever or other concerns as needed. You may initiate cmfq-mek-wgrsvpn Claritin or the generic loratadine, 1 tablet daily as needed for allergy symptoms. Copy Copies To 1: MARIANELA PIZANO TIMOTHY D MD Jun 02, 2020 00:15
[2020-06-02 00:27] VITALS: BP 104/68
== END 2020-06-02 00:27 | disposition home or self-care (01) ==
LOC: EDUNIT# 23:35 → ER 23:38
DX: R21 Rash and other nonspecific skin eruption (principal); M54.31 Sciatica, right side; J30.9 Allergic rhinitis, unspecified; Z88.0 Allergy status to penicillin; Z88.5 Allergy status to narcotic agent; Z88.2 Allergy status to sulfonamides; Z88.1 Allergy status to other antibiotic agents; Z88.8 Allergy status to other drugs, medicaments and biological substances
CPT/HCPCS: 99282

== ENCOUNTER → 2020-06-01 | Outpatient (CLI) | payer MEDICARE, OTHER ==
--- NOTE | 2020-06-01 14:05 | Diagnostic Imaging Report ---
PROCEDURE: US right lower extremity venous. TECHNIQUE: Multiple real-time grayscale images were obtained over the right lower extremity in various projections. Additional spectral analysis and color Doppler duplex images were also obtained. INDICATION: Right calf pain for 2 weeks. There is no evidence of right lower extremity DVT. Right lower extremity deep venous system shows normal compressibility with normal response to augmentation and Valsalva. No fluid collection or mass is detected. IMPRESSION: No evidence of right lower extremity DVT. Dictated by: Dictated on workstation # [id number]
== END ==
LOC: RAD 11:00
PROVIDERS: ATTEND Family Medicine
DX: M79.604 Pain in right leg (principal)

== ENCOUNTER → 2020-06-16 | Outpatient (CLI) | payer MEDICARE, OTHER ==
--- NOTE | 2020-06-16 14:04 | Diagnostic Imaging Report ---
INDICATION: Pain of the lower extremity COMPARISON: None. FINDINGS: Multiple radiographic views of the right tibia and fibula were obtained and show no fractures, dislocations, or other acute bony abnormalities. Joint spaces are well maintained throughout. The soft tissues appear unremarkable. No radiopaque foreign bodies are identified. IMPRESSION: Unremarkable radiographic exam of the right tibia and fibula. Dictated by: Dictated on workstation # [id number]
== END ==
LOC: RAD 09:13
PROVIDERS: ATTEND Family Medicine
DX: M79.661 Pain in right lower leg (principal)
CPT/HCPCS: 73590

== ENCOUNTER → 2020-06-23 | Outpatient (CLI) | payer MEDICARE, OTHER | LOC: CARD 09:19 | PROVIDERS: ATTEND Family Medicine | DX: R07.9 Chest pain, unspecified (principal); R00.2 Palpitations | CPT/HCPCS: 93005 ==

== ENCOUNTER → 2020-06-29 | Outpatient (CLI) | payer MEDICARE, OTHER | LOC: CARD 14:00 | PROVIDERS: ATTEND Family Medicine | DX: I51.7 Cardiomegaly (principal); I34.0 Nonrheumatic mitral (valve) insufficiency | CPT/HCPCS: 93306 ==

== ENCOUNTER → 2020-08-03 | Outpatient (CLI) | payer MEDICARE, OTHER ==
--- NOTE | 2020-08-03 17:05 | Diagnostic Imaging Report ---
CLINICAL INDICATION: Patient with right chronic maxillary/frontal sinus disease. EXAM: Axial CT scan of the maxillofacial structures without IV contrast. Coronal and sagittal reformations were performed. Auto Exposure Controls were utilized during the CT exam to meet ALARA standards for radiation dose reduction. COMPARISON: None. FINDINGS: PARANASAL SINUSES: FRONTAL: Unremarkable. ETHMOID: Unremarkable. MAXILLARY: Unremarkable. SPHENOID: Unremarkable. OTHER PARANASAL SINUS FINDINGS: None. NASAL SEPTUM: There is 5 mm of leftward nasal septal deviation. VISUALIZED TEMPORAL BONE STRUCTURES: Unremarkable. BONY STRUCTURES: Unremarkable. EXTRACRANIAL SOFT TISSUE/ ORBITS: Unremarkable. IMPRESSION: 1: There is no paranasal sinus disease. 2: There is leftward nasal septal deviation. Dictated by: Dictated on workstation # [id number]
== END ==
LOC: RAD 16:15
PROVIDERS: ATTEND Otolaryngology Otolaryngology/Facial Plastic Surgery
DX: J34.2 Deviated nasal septum (principal); J32.1 Chronic frontal sinusitis
CPT/HCPCS: 70486

== ENCOUNTER 2020-09-07 13:47 | Outpatient (RCR) | payer MEDICARE, OTHER | END 2020-10-04 16:30 | disposition home or self-care (01) | PROVIDERS: ATTEND Anesthesiology Pain Medicine | DX: M47.816 Spondylosis without myelopathy or radiculopathy, lumbar region (principal); M79.18 Myalgia, other site; M54.6 Pain in thoracic spine; M54.2 Cervicalgia ==

== ENCOUNTER → 2020-09-17 | Outpatient (CLI) | payer MEDICARE, OTHER ==
--- NOTE | 2020-09-17 15:37 | Diagnostic Imaging Report ---
INDICATION: Degenerative disc disease. Right leg pain. Back pain. COMPARISON: None. FINDINGS: Frontal and lateral radiographic views of the lumbar spine were obtained. Flexion and extension views were also obtained in the lateral projection. For the purposes of this exam, last well-formed disc space is denoted the L5-S1 level. Note is made of partial sacralization of L5 on the left. Evaluation of the static alignment shows mild grade 1 anterolisthesis at L5-S1 with patient in the neutral position. This shows no significant change with flexion, but does show progression with extension. There is no evidence of jumped facets. Vertebral body heights are maintained. There is no acute fracture. Mild multilevel degenerative changes are noted. Included small bowel loops are nondistended. Note is made of calcified arterial sclerosis. IMPRESSION: 1. No acute fracture or dislocation in the lumbar spine. 2. Anterolisthesis at L5-S1, which again becomes more prominent with extension. Dictated by: Dictated on workstation # [id number]
== END ==
LOC: RAD 11:31
PROVIDERS: ATTEND Registered Nurse
DX: M51.36 Other intervertebral disc degeneration, lumbar region (principal); M43.17 Spondylolisthesis, lumbosacral region
CPT/HCPCS: 72110

== ENCOUNTER 2021-03-18 08:58 | Outpatient (RCR) | payer MEDICARE, OTHER | END 2021-03-21 | disposition home or self-care (01) | PROVIDERS: ATTEND Nurse Practitioner Family | DX: M79.661 Pain in right lower leg (principal) ==

== ENCOUNTER 2021-04-08 11:38 | Emergency (ER) | payer MEDICARE, OTHER ==
[~2021-04-08] VITALS: Ht 160 cm; Wt 51.7 kg
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
[2021-04-08] MEDS ORDERED: ACETAMINOPHEN 500 MG TAB (TYLENOL) PO ONE (12:00)
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
[2021-04-08 12:41] VITALS: BP 133/74
== END 2021-04-08 12:41 | disposition home or self-care (01) ==
LOC: EDUNIT# 11:38 → ER 11:39
DX: S01.81XA Laceration without foreign body of other part of head, initial encounter (principal); W22.8XXA Striking against or struck by other objects, initial encounter
CPT/HCPCS: 70450; 72125

== ENCOUNTER → 2021-04-18 | Outpatient (RCR) | payer MEDICARE, OTHER | END | disposition home or self-care (01) | PROVIDERS: ATTEND Nurse Practitioner Family | DX: M79.661 Pain in right lower leg (principal) ==

== ENCOUNTER 2021-04-21 12:58 | Outpatient (RCR) | payer MEDICARE, OTHER | END 2021-05-19 | disposition home or self-care (01) | PROVIDERS: ATTEND Nurse Practitioner Family | DX: M79.661 Pain in right lower leg (principal) ==

== ENCOUNTER 2021-09-02 15:10 | Emergency (ER) | payer MEDICARE, OTHER ==
[~2021-09-02] VITALS: Ht 160 cm; Wt 51.7 kg
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
[2021-09-02 15:52] VITALS: BP 115/86
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
== END 2021-09-02 15:51 | disposition home or self-care (01) ==
LOC: EDUNIT# 15:10 → ER 15:13
DX: M54.2 Cervicalgia (principal); M81.0 Age-related osteoporosis without current pathological fracture; V49.50XA Passenger injured in collision with unspecified motor vehicles in traffic accident, initial encounter
CPT/HCPCS: 70450; 72125

== ENCOUNTER 2022-01-17 14:02 | Outpatient (RCR) | payer MEDICARE, OTHER | END 2022-01-18 | disposition still patient (30) | PROVIDERS: ATTEND Podiatrist | DX: M25.571 Pain in right ankle and joints of right foot (principal); G89.29 Other chronic pain; M76.71 Peroneal tendinitis, right leg ==

== ENCOUNTER 2022-02-03 13:40 | Outpatient (RCR) | payer MEDICARE, OTHER | END 2022-02-06 14:27 | disposition home or self-care (01) | PROVIDERS: ATTEND Podiatrist | DX: M76.71 Peroneal tendinitis, right leg (principal); M25.671 Stiffness of right ankle, not elsewhere classified ==